=== PATIENT | female | born 1990 | race African-American/Black ===

== ENCOUNTER 2017-07-18 06:37 | Emergency (ER) | payer OTHER ==
[~2017-07-18] VITALS: Ht 167.6 cm; Wt 112.0 kg
[~2017-07-18 06:37] MED LIST: ACET-787 PO; ALPR1TAB2 PO; BENZ-196 PO; CARI350T PO; CODE118S2 PO; IBUP-974 PO; OXYC1TAB PO; ZOLP5TAB1 PO
[2017-07-18 06:46] VITALS: BP 129/85
--- NOTE | 2017-07-18 06:49 | NUR ---
to bed# 12 ambulatory with the daughter, report given to ARMAND ASHTON.
--- NOTE | 2017-07-18 06:50 | NUR ---
PT TAKEN TO BED 12
--- NOTE | 2017-07-18 07:03 | NUR ---
26Y/F C/O cough, sorethroat, BL ear pain, diarrhea,vomiting since monday. RR EVEN AND UNLABORED, BL BS CLEAR THROUGHOUT. ABD ROUND,SOFT, NON TENDER, ACTIVE BS X4. PT STATES SHE WAS SENT HOME FROM WORK ON MONDAY AND GIVEN TYLENOL. HAS BEEN TAKING TYLENOL W/ NO RELIEF. PT DENIES PMH, NKDA
--- NOTE | 2017-07-18 07:13 | NUR ---
Pt report given to KAYLEE. Transfer of care at this time.
--- NOTE | 2017-07-18 07:15 | NUR ---
SITTING UPRIGHT IN [facility]--FULL CLEAR SPEECH AWAITS MD NARANJO
[2017-07-18 08:02] VITALS: BP 129/85
--- NOTE | 2017-07-18 08:03 | NUR ---
Patient discharged with v/s stable. Written and verbal after care instructions given and explained. Patient alert, oriented and verbalized understanding of instructions. Ambulatory with steady gait. All questions addressed prior to discharge. ID band removed. Patient advised to follow up with PMD. Rx of FLONASE given. Patient educated on indication of medication including possible reaction and side effects. Opportunity to ask questions provided and answered.
== END 2017-07-18 08:03 | disposition home or self-care (01) ==
LOC: MED 06:37
DX: H66.91 Otitis media, unspecified, right ear (principal); J06.9 Acute upper respiratory infection, unspecified; J45.909 Unspecified asthma, uncomplicated; E07.9 Disorder of thyroid, unspecified; Z79.899 Other long term (current) drug therapy
CPT/HCPCS: 99283

== ENCOUNTER 2018-06-13 08:28 | Emergency (ER) | payer OTHER ==
[~2018-06-13] VITALS: Ht 165.1 cm; Wt 104.3 kg
[2018-06-13 08:30] VITALS: BP 116/63
--- NOTE | 2018-06-13 08:36 | NUR ---
Patient ambulated to bed 7. RN evaluating patient at bedside.
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
--- NOTE | 2018-06-13 08:57 | NUR ---
Dr. Box evaluating patient at bedside.
--- NOTE | 2018-06-13 09:10 | NUR ---
REPORT RECIEVED FROM DESTINY ASHTON, PT AA0X4, SITTING IN BED, FAMILY AT BEDSIDE
--- NOTE | 2018-06-13 09:26 | NUR ---
DR FIGUEROA RE-EVALUATING AT BEDSIDE
[2018-06-13] MEDS ORDERED: HYDROcodone/APAP 5/325 MG 1 TAB TAB PO ONE (09:40)
[2018-06-13] MEDS ORDERED: LORazepam 2 MG/ML VIAL IM ONE (09:40)
[2018-06-13 10:17] VITALS: BP 120/67
== END 2018-06-13 10:17 | disposition home or self-care (01) ==
LOC: MED 08:28
DX: F41.0 Panic disorder [episodic paroxysmal anxiety] (principal); J45.909 Unspecified asthma, uncomplicated; E07.9 Disorder of thyroid, unspecified; I10 Essential (primary) hypertension; Z79.899 Other long term (current) drug therapy; V49.40XA Driver injured in collision with unspecified motor vehicles in traffic accident, initial encounter; Y93.89 Activity, other specified; Y92.89 Other specified places as the place of occurrence of the external cause; Y99.8 Other external cause status
CPT/HCPCS: 96372; 99284; J2060

== ENCOUNTER 2018-11-09 14:47 | Emergency (ER) | payer OTHER ==
[~2018-11-09] VITALS: Ht 170.2 cm; Wt 106.6 kg
[2018-11-09 14:55] VITALS: BP 134/79
--- NOTE | 2018-11-09 15:13 | NUR ---
PT BIB SELF C/O COUGH, RT EAR PAIN, CONGESTION X 2 DAYS. PT REPORTS PRODUCTIVE COUGH W/ YELLOW SPUTUM, RR EVEN AND NON-LABORED, BREATH SOUNDS CLEAR THROUGHOUT. PT REPORTS PAIN AT 9/10 IN CHEST WHEN SHE COUGHS AND RT EAR PAIN. PT REPORTS KIDS WERE SICK W/ SAME SYMPTOMS 3 WEEKS AGO AND RECIEVED ABX AND COUGH MEDICINE FROM EMERGENCY ROOM.
--- NOTE | 2018-11-09 15:43 | NUR ---
PT LEFT OUT OF ER DREA AND STATES "I'M GOING TO CHARGE MY PHONE IN MY CAR BECAUSE OBVIOUSLY I'M GOING TO BE HERE AWHILE." DR. WEST AWARE.
--- NOTE | 2018-11-09 16:04 | NUR ---
PERFORMED FLU SWAB ON PT AT THIS TIME.
--- NOTE | 2018-11-09 16:43 | NUR ---
PT IN BED, AAOX4, COOPERATIVE, REPORTS THAT SHE IS MORE IRRITATED THAN SHE IS IN PAIN. PT MADE THAT ER VISIT IS TAKING SO LONG AND STATES SHE HAS TO LEAVE BY 17:00. VSS.
[2018-11-09 17:18] VITALS: BP 102/51
--- NOTE | 2018-11-09 17:18 | NUR ---
DCPatient discharged with v/s stable. Written and verbal after care instructions given and explained. Patient alert, oriented and verbalized understanding of instructions. Ambulatory with steady gait. All questions addressed prior to discharge. ID band removed. Patient advised to follow up with PMD. Rx of NYQUIL given. Patient educated on indication of medication including possible reaction and side effects. Opportunity to ask questions provided and answered.
== END 2018-11-09 17:18 | disposition home or self-care (01) ==
LOC: MED 14:47
DX: B34.9 Viral infection, unspecified (principal); J45.909 Unspecified asthma, uncomplicated; E07.9 Disorder of thyroid, unspecified; F17.210 Nicotine dependence, cigarettes, uncomplicated; Z79.899 Other long term (current) drug therapy
CPT/HCPCS: 81025; 87804; 99283

== ENCOUNTER 2019-11-13 18:30 | Emergency (ER) | payer OTHER ==
[~2019-11-13] VITALS: Ht 175.3 cm; Wt 117.0 kg
[~2019-11-13 18:30] MED LIST changes: -ACET-787 PO; -BENZ-196 PO; -CARI350T PO; -CODE118S2 PO; -IBUP-974 PO; -OXYC1TAB PO; -ZOLP5TAB1 PO
[2019-11-13 18:40] VITALS: BP 126/64
--- NOTE | 2019-11-13 18:50 | NUR ---
PATIENT AMBULATED TO ER BED 04
--- NOTE | 2019-11-13 18:52 | NUR ---
PT REFUSING TO PROVIDE URINE SAMPLE, ERMD AWARE
--- NOTE | 2019-11-13 19:18 | NUR ---
29 Y/O FEMALE C/O ABD CRAMPING X 4 DAYS. PT STATES 6/10 PAIN LEVEL. PT JUST FOUND OUT SHE IS X1 WEEK AGO. LMP 10/03/19. A2. DENIES VAGINAL BLEEDING OR DISCHARGE. HX: ANXIETY RX: NONE
--- NOTE | 2019-11-13 19:29 | NUR ---
ultrasound at bedside
[2019-11-13 19:44] LABS: BASOPHILS % (AUTO) 0.4 % (0.0-2.0); EOSINOPHILS # (AUTO) 0.2 K/uL (0-0.4); EOSINOPHILS % (AUTO) 2.3 % (0.0-4.0); HEMATOCRIT 37.8 % (36-48); HEMOGLOBIN 12.2 g/dL (12.0-16.0); LYMPHOCYTES # (AUTO) 1.4 K/uL (2.5-16.5); LYMPHOCYTES % (AUTO) 17.8 % (20.5-51.1); MEAN CORPUSCULAR HEMOGLOBIN 26 pg (27-31); MEAN CORPUSCULAR HGB CONC 32 g/dL (33-37); MONOCYTES # (AUTO) 0.6 K/uL (0.8-1.0); MONOCYTES % (AUTO) 7.8 % (1.7-9.3); NEUTROPHILS # (AUTO) 5.7 K/uL (1.8-7.7); NEUTROPHILS % (AUTO) 71.7 % (42.2-75.2); PLATELET COUNT (AUTO) 296 K/uL (140-450); RED BLOOD CELL COUNT(AUTO) 4.79 MIL/uL (4.20-5.40); RED CELL DISTRIBUTION WIDTH 14.4 % (11.6-13.7)
[2019-11-13 20:07] LABS: ANION GAP 12.6 (8-16); CREATININE 0.7 mg/dL (0.6-1.3); POTASSIUM 3.6 mmol/L (3.5-5.1); TOTAL BILIRUBIN 0.2 mg/dL (0.0-1.0)
[2019-11-13] MEDS: ACETAMINOPHEN EXTRA STRENGTH 500 MG TAB PO ONE (21:05)
[2019-11-13] MEDS: METOCLOPRAMIDE 10 MG TAB PO ONE (21:05)
--- NOTE | 2019-11-13 21:31 | NUR ---
PT REFUSED TO WAIT FOR CD IMAGES OF ULTRASOUND.
[2019-11-13 21:32] VITALS: BP 126/64
--- NOTE | 2019-11-13 21:32 | NUR ---
Patient discharged with v/s stable. Written and verbal after care instructions given and explained. Patient alert, oriented and verbalized understanding of instructions. Ambulatory with steady gait. All questions addressed prior to discharge. ID band removed. Patient advised to follow up with PMD. Rx of TYLENOL AND REGLAN given. Patient educated on indication of medication including possible reaction and side effects. Opportunity to ask questions provided and answered.
== END 2019-11-13 21:32 | disposition home or self-care (01) ==
LOC: MED 18:30
DX: O34.81 Maternal care for other abnormalities of pelvic organs, first trimester (principal); N83.202 Unspecified ovarian cyst, left side; Z3A.01 Less than 8 weeks gestation of pregnancy
CPT/HCPCS: 36415; 76705; 76817; 80053; 81002; 84702; 85025; 86140; 99285; J8597; Q0092

== ENCOUNTER 2019-12-06 13:44 | Emergency (ER) | payer OTHER ==
[~2019-12-06] VITALS: Ht 167.6 cm; Wt 114.8 kg
[2019-12-06 13:48] VITALS: BP 121/84
--- NOTE | 2019-12-06 13:52 | NUR ---
Patient ambulated to bed 5. RN evaluating patient at bedside.
--- NOTE | 2019-12-06 14:04 | NUR ---
Dr. Kaye is evaluating the patient at bedside.
[2019-12-06] MEDS ORDERED: diphenhydrAMINE 50 MG/ML VIAL IVP ONE (14:10)
[2019-12-06] MEDS ORDERED: METOCLOPRAMIDE 10 MG/2 ML INJ VIAL IVP ONE (14:10)
--- NOTE | 2019-12-06 14:24 | NUR ---
US tech at bedside for exam.
[2019-12-06 14:43] LABS: APPEARANCE,URINE HAZY (CLEAR); BILIRUBIN,URINE 1+ (NEGATIVE); BLOOD, URINE 1+ (NEGATIVE); COLOR,URINE YELLOW (YELLOW); LEUKOCYTE ESTERASE ,URINE NEGATIVE (NEGATIVE); NITRITE, URINE NEGATIVE (NEGATIVE); PH,URINE 5.5 (5.0-9.0); UGLUCOSE NEGATIVE (NEGATIVE)
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
--- NOTE | 2019-12-06 15:02 | NUR ---
PT REQUESTING IV BE REMOVED, PER DR. WANG IT IS OK TO REMOVE
[2019-12-06 15:08] LABS: ANION GAP 14.8 (8-16); CARBON DIOXIDE 23.4 mmol/L (21-32); CREATININE 0.6 mg/dL (0.6-1.3); POTASSIUM 3.2 mmol/L (3.5-5.1)
[2019-12-06 15:43] VITALS: BP 121/84
--- NOTE | 2019-12-06 15:43 | NUR ---
Patient discharged with v/s stable. Written and verbal after care instructions given and explained. Patient alert, oriented and verbalized understanding of instructions. Ambulatory with steady gait. All questions addressed prior to discharge. ID band removed. Patient advised to follow up with PMD. Rx of reglan benadryl given. Patient educated on indication of medication including possible reaction and side effects. Opportunity to ask questions provided and answered.
== END 2019-12-06 15:43 | disposition home or self-care (01) ==
LOC: MED 13:44
DX: O21.8 Other vomiting complicating pregnancy (principal); O26.891 Other specified pregnancy related conditions, first trimester; R19.7 Diarrhea, unspecified; O23.42 Unspecified infection of urinary tract in pregnancy, second trimester; F41.9 Anxiety disorder, unspecified
CPT/HCPCS: 36415; 76801; 80048; 81001; 81025; 83735; 84702; 87086; 87426; 96374; 96375; 99284; J1200; J2765; Q0092

== ENCOUNTER 2020-02-19 17:07 | Emergency (ER) | payer OTHER ==
[~2020-02-19] VITALS: Ht 175.3 cm; Wt 113.4 kg
[2020-02-19 17:27] VITALS: BP 125/72
--- NOTE | 2020-02-19 17:52 | NUR ---
PT WAS RECENTLY EXPOSED TO COVID BY HER , SHE IS 20 WEEKS AND NEEDS TO BE CLEARED TO GO TO [facility] APPOINTMENTS PMH: ANXIETY, BRONCHITIS NKDA
[2020-02-19 18:34] VITALS: BP 125/72
--- NOTE | 2020-02-19 18:35 | NUR ---
Patient discharged with v/s stable. Written and verbal after care instructions given and explained. Patient verbalized understanding. Ambulatory with steady gait. All questions addressed prior to discharge. Advised to follow up with PMD.
== END 2020-02-19 18:35 | disposition home or self-care (01) ==
LOC: MED 17:07
DX: O26.892 Other specified pregnancy related conditions, second trimester (principal); Z20.828 Contact with and (suspected) exposure to other viral communicable diseases; J45.909 Unspecified asthma, uncomplicated; E07.9 Disorder of thyroid, unspecified; Z3A.24 24 weeks gestation of pregnancy; Z79.899 Other long term (current) drug therapy
CPT/HCPCS: 99283

== ENCOUNTER 2020-02-24 08:35 | Emergency (ER) | payer OTHER, SELFPAY ==
[~2020-02-24] VITALS: Ht 167.6 cm; Wt 115.7 kg
[2020-02-24 09:16] VITALS: BP 115/86
--- NOTE | 2020-02-24 09:41 | NUR ---
Patient placed in tent for covid precautions
--- NOTE | 2020-02-24 09:51 | NUR ---
29 y/o female c/o nasal congestion and headache x 3 days. Denies respiratory symptoms at this time. + covid contact in the home. Patient states she is approx 5 months . VSS
--- NOTE | 2020-02-24 10:22 | NUR ---
Covid swab collected and walked to lab.
[2020-02-24 10:31] VITALS: BP 115/86
--- NOTE | 2020-02-24 10:31 | NUR ---
Patient discharged with v/s stable. Written and verbal after care instructions given and explained. Patient alert, oriented and verbalized understanding of instructions. Ambulatory with steady gait. All questions addressed prior to discharge. ID band removed. Patient advised to follow up with PMD. Rx of albuterol inhaler given. Patient educated on indication of medication including possible reaction and side effects. Opportunity to ask questions provided and answered.
== END 2020-02-24 10:31 | disposition home or self-care (01) ==
LOC: MED 08:35
DX: O98.512 Other viral diseases complicating pregnancy, second trimester (principal); U07.1 COVID-19; J45.909 Unspecified asthma, uncomplicated; E07.9 Disorder of thyroid, unspecified; Z3A.20 20 weeks gestation of pregnancy; Z79.899 Other long term (current) drug therapy
CPT/HCPCS: 99283; U0003

== ENCOUNTER 2020-04-08 15:50 | Observation (INO) | payer OTHER, SELFPAY ==
[~2020-04-08] VITALS: Ht 170.2 cm; Wt 122.5 kg
[2020-04-08] MEDS ORDERED: PRETAB PO (17:27)
[2020-04-08] MEDS ORDERED: BETAMETH ACET/BETAMETH NA PH 30 MG/5 ML VIAL IM SCH (18:35)
[2020-04-08] MEDS ORDERED: BETAMETH ACET/BETAMETH NA PH 30 MG/5 ML VIAL IM ONE (18:49)
[2020-04-08] MEDS: metroNIDAZOLE 500 MG TAB PO SCH (20:05)
[2020-04-09 07:44] VITALS: BP 123/78
--- NOTE | 2020-04-09 09:12 | NUR ---
PATIENT HAS BEEN SCREENED AND CATEGORIZED LOW NUTRITION RISK. PATIENT WILL BE SEEN WITHIN 7 DAYS OF ADMISSION. 04/15/[address]
[2020-04-09] MEDS: metroNIDAZOLE 500 MG TAB PO SCH ×2 (10:16→22:16)
[2020-04-09] MEDS ORDERED: MORPHINE SULFATE 5 MG/ML VIAL IVP PRN (10:55)
== END 2020-04-10 00:12 | disposition home or self-care (01) ==
LOC: MLD 15:50 → MFCC 20:39
PROVIDERS: ADMIT Obstetrics & Gynecology; ATTEND Obstetrics & Gynecology
DX: O42.912 Preterm premature rupture of membranes, unspecified as to length of time between rupture and onset of labor, second trimester (principal); O09.292 Supervision of pregnancy with other poor reproductive or obstetric history, second trimester; O99.342 Other mental disorders complicating pregnancy, second trimester; F41.9 Anxiety disorder, unspecified; O99.352 Diseases of the nervous system complicating pregnancy, second trimester; G47.00 Insomnia, unspecified; Z3A.27 27 weeks gestation of pregnancy
CPT/HCPCS: 76815; 81000; 96372; G0378; J0702; 51702

== ENCOUNTER 2020-10-11 07:59 | Emergency (ER) | payer OTHER, SELFPAY ==
[~2020-10-11] VITALS: Ht 170.2 cm; Wt 122.5 kg
[~2020-10-11 07:59] MED LIST changes: -ALPR1TAB2 PO; +PRETAB PO
[2020-10-11 08:10] VITALS: BP 159/87
--- NOTE | 2020-10-11 08:15 | NUR ---
C/O COUGH, FEVER,N/V, IVEY, R EAR PAIN , GENERALIZED ABD PAIN X YESTERDAY. GOT PFIZER 1 ST DOSE YESTERDAY. PMH: ANXIETY
--- NOTE | 2020-10-11 08:17 | NUR ---
TENT 1
--- NOTE | 2020-10-11 08:17 | NUR ---
Patient being evaluated by DR AVALOS at PT'S CAR.
--- NOTE | 2020-10-11 08:30 | NUR ---
SWAB DONE, SENT TO LAB.
[2020-10-11] MEDS ORDERED: AZIT250T4 PO (10:29)
[2020-10-11] MEDS ORDERED: PRED20TA5 PO (10:29)
--- NOTE | 2020-10-11 10:40 | NUR ---
PT WAS TOLD THAT SHE MUST REMAIN IN TENT TO BE SEEN BY ERMD AND HAVE DISCHARGE PAPERS GIVEN. PT WAS CALLED TWICE, NO ANSWER. PT MOVED FROM CAR TO TENT YELLING AND VISIBLY UPSET. PT WOULD NOT LET ME EXPLAIN HOSPITAL POLICY AND DEMANDED I GIEV HER PAPER WORK AND HAVE HER SIGN SO SHE CAN LEAVE. "I KNOW IM SICK, IM NOT STAYING IN THE TENT, YOU WILL BE REPORTED."
[2020-10-11 10:42] VITALS: BP 159/87
--- NOTE | 2020-10-11 10:43 | NUR ---
Patient discharged with v/s stable. Written and verbal after care instructions given and explained. Patient alert, oriented and verbalized understanding of instructions. Ambulatory with steady gait. All questions addressed prior to discharge. ID band removed. Patient advised to follow up with PMD. Rx of AZITHROMYCIN, PREDNISONE given. Patient educated on indication of medication including possible reaction and side effects. Opportunity to ask questions provided and answered.
== END 2020-10-11 10:43 | disposition home or self-care (01) ==
LOC: MED 07:59
DX: T88.1XXA Other complications following immunization, not elsewhere classified, initial encounter (principal); T50.B15A Adverse effect of smallpox vaccines, initial encounter; Y92.89 Other specified places as the place of occurrence of the external cause; Z20.822 Contact with and (suspected) exposure to COVID-19
CPT/HCPCS: 71045; 87426; 99284; U0003

== ENCOUNTER 2023-02-26 07:43 | Emergency (ER) | payer OTHER ==
[~2023-02-26] VITALS: Ht 167.6 cm; Wt 107.0 kg
[~2023-02-26 07:43] MED LIST changes: +AZIT250T4 PO; +PRED20TA5 PO
[2023-02-26 08:00] VITALS: BP 131/76; PULSE 51; RESP 20; TEMP 98.1; O2SAT 100
[2023-02-26] MEDS ORDERED: KETOROLAC 30 MG/ML VIAL IM ONE (08:45)
[2023-02-26] MEDS ORDERED: ONDANSETRON 4 MG ODT PO ONE (08:45)
[2023-02-26 09:05] LABS: HEMATOCRIT 37.2 % (36-48); HEMOGLOBIN 12.4 g/dL (12.0-16.0); MEAN CORPUSCULAR HEMOGLOBIN 25 pg (27-31); MEAN CORPUSCULAR HGB CONC 33 g/dL (33-37); MEAN CORPUSCULAR VOLUME 73.9 fL (80-94); PLATELET COUNT (AUTO) 330 K/uL (140-450); RED BLOOD CELL COUNT(AUTO) 5.04 MIL/uL (4.20-5.40); RED CELL DISTRIBUTION WIDTH 15.9 % (11.6-13.7); WHITE BLOOD COUNT (AUTO) 9.6 K/uL (4.8-10.8)
[2023-02-26] MEDS ORDERED: ALUMINUM HYD/MAG/SIMETHICONE 30 ML UDC PO ONE (09:15)
[2023-02-26] MEDS ORDERED: diphenhydrAMINE 50 MG CAP PO ONE (09:15)
[2023-02-26 09:27] LABS: APPEARANCE,URINE SL CLOUDY (CLEAR); BILIRUBIN,URINE NEGATIVE (NEGATIVE); BLOOD, URINE 1+ (NEGATIVE); COLOR,URINE YELLOW (YELLOW); LEUKOCYTE ESTERASE ,URINE NEGATIVE (NEGATIVE); NITRITE, URINE NEGATIVE (NEGATIVE); PROTEIN,URINE 1+ (NEGATIVE); UGLUCOSE NEGATIVE (NEGATIVE); UROBILINOGEN,URINE 0.2 EU/dL (0.2 - 1)
[2023-02-26 09:37] LABS: LYMPHOCYTES % (MANUAL) 3 % (20-46); MONOCYTES % (MANUAL) 8 % (5-12)
[2023-02-26 09:44] LABS: ALANINE AMINOTRANSFERASE 19 U/L (12-78); ALBUMIN 3.1 g/dL (3.4-5.0); ALKALINE PHOSPHATASE 82 U/L (50-136); ASPARTATE AMINOTRANSFERASE 7 U/L (15-37); BILIRUBIN,DIRECT 0.1 mg/dL (0.0-0.3); LIPASE 24 U/L (16-77); TOTAL BILIRUBIN 0.4 mg/dL (0.0-1.0); TOTAL PROTEIN, SERUM 8.9 g/dL (6.4-8.2)
[2023-02-26 10:08] LABS: ANION GAP 17.8 (8-16); CALCIUM 8.9 mg/dL (8.5-10.1); CARBON DIOXIDE 21.3 mmol/L (21-32); CREATININE 0.7 mg/dL (0.6-1.3); POTASSIUM 3.1 mmol/L (3.5-5.1)
[2023-02-26 10:41] LABS: BACTERIA,URINE 1+ /HPF (None Seen); SQUAMOUS EPITHELIAL CELL,UR 0-3 (FEW) /LPF (0-3 (FEW)); WBC,URINE 0-5 /HPF (0-5)
[2023-02-26 10:44] LABS: FLU A ANTIGEN POSITIVE (NEGATIVE); FLU B ANTIGEN NEGATIVE (NEGATIVE)
[2023-02-26] MEDS ORDERED: IBUP-2213 PO (11:37)
[2023-02-26] MEDS ORDERED: DEXT118S25 PO (11:37)
[2023-02-26] MEDS ORDERED: ACET-10509 PO (11:37)
[2023-02-26] MEDS ORDERED: ONDA-188 PO (11:37)
[2023-02-26 12:10] VITALS: BP 131/76; PULSE 51; RESP 20; TEMP 98.1; O2SAT 100
== END 2023-02-26 12:10 | disposition home or self-care (01) ==
LOC: MED 07:43
DX: J10.1 Influenza due to other identified influenza virus with other respiratory manifestations (principal); K21.9 Gastro-esophageal reflux disease without esophagitis; R07.2 Precordial pain; R11.2 Nausea with vomiting, unspecified; M79.18 Myalgia, other site; Z20.822 Contact with and (suspected) exposure to COVID-19; J45.909 Unspecified asthma, uncomplicated; Z95.0 Presence of cardiac pacemaker; Z79.899 Other long term (current) drug therapy; Z79.2 Long term (current) use of antibiotics; Z79.1 Long term (current) use of non-steroidal anti-inflammatories (NSAID)
CPT/HCPCS: 36415; 71045; 80048; 80076; 81001; 81025; 83690; 84484; 85025; 87426; 87804; 93005; 96372; 99285; J1885; Q0092; Q0162; Q0163